=== PATIENT | female | born 1985 | race Caucasian/White ===

== ENCOUNTER 2018-07-14 02:35 | Emergency (ER) | payer SELFPAY ==
[2018-07-14] MEDS ORDERED: KETOROLAC TROMETHAMINE 60 MG/2 ML VIAL IVP STA (02:36)
[2018-07-14] MEDS ORDERED: fentaNYL CITRATE/PF 100 MCG/2 ML INJ. IVP STA (02:38)
[2018-07-14] MEDS ORDERED: ONDANSETRON HCL/PF 4 MG/ 2ML VIAL IVP STA (02:40)
--- NOTE | 2018-07-14 02:45 | ED Physician Documentation ---
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 History exam limited due to patient condition/intoxicated. pt denies current chest pain, dyspnea, syncope/near syncope, headache, dizziness, visual disturbances, v/d, fever/chills, rash, sick contacts, dysuria, trauma. melena or hematochezia, bleeding or easy bruising, change in bowel or bladder function, no recent weight loss/gain, anxiety or depression. ROS Negative unless otherwise specified. - ROS CONST: no problems. denies: fever, sweating, recent illness, weakness, weight loss, chills EYES/ENT: none. denies: problems with vision, sore throat, nasal drainage, nasal congestion CVS/RESP: none. denies: chest pain, shortness of breath, cough GI/: abdominal pain, nausea. denies: problems urinating, vomiting, diarrhea, black stools, other MS/SKIN/LYMPH: none NEURO/PSYCH: other (ROS negative unless otherwise specified). denies: headache, fainting, dizziness, tingling, numbness, difficulty walking, difficulty with speech, anxiety, depression - PAST HX Past History: kidney stones Surgeries/Procedures: other (tubal ligation appendectomy) - SOCIAL HX Smoking History: other (VAPE) Alcohol Use: occasionally Drug Use: none - FAMILY HX Family History: Yes - REVIEWED ASSESSMENTS Nursing Assessment Reviewed: Yes Vitals Reviewed: Yes <Natali Blood - Last Filed: 07/14/18 07:57> - VITAL SIGNS Vital Signs: Vital Signs Temp Pulse Resp BP Pulse Ox 98.6 F 89 24 123/93 98 07/14/18 02:35 07/14/18 02:35 07/14/18 02:35 07/14/18 02:35 07/14/18 02:35 <Olamide Marcum - Last Filed: 07/14/18 10:21> - PAST HX Allergies/Adverse Reactions: Allergies Allergy/AdvReac Type Severity Reaction Status Date / Time Sulfa (Sulfonamide AdvReac Nausea/Vomi Verified 07/14/18 03:10 Antibiotics) ting Home Medications: Ambulatory Orders Medication Instructions Recorded NK 07/14/18 Progress - Results/Orders Results/Orders: 0505-Pt became hypotensive and decreased responsiveness approximately 30 min after ativan 0.5 mg and Fentanyl 50 mcg. pt did not respond to voice but did respond to sternal rub. reversal agents romazicon and narcan were given and pt became awake alert and BP increased to 100 systolic. Will monitor pt 0530 flank pain resolved. pt NAD VSS. 0730 Care and report to olamide BRIGHT. - Progress Progress: Report Submission Date: Jul 14, 2018 4:27:59 AM TELECOMMUNICATOR SUPERVISOR Patient Study Name: JUANA CHURCHILL Date: Jul 14, 2018 3:24:12 AM TELECOMMUNICATOR SUPERVISOR Modality Type: CT\SR Gender: F Description: CT ABD PELVIS W/ CON : 85 Institution: [facility] Physician: NATALI BLOOD CT abdomen and pelvis with and without contrast History: Pelvic pain. Flank pain Technique: Helically acquired images were obtained with and without contrast. Findings: There is no contrast on the study labeled as post contrast. Within the right renal pelvis, there is a 4 mm calyceal stone. There is a very faint 2 mm calyceal stone adjacent to a small scar at the lower pole of the right kidney. At the lower pole of the left kidney, there are 2 adjacent 2 mm stones. There is mild scarring at the upper pole of the left kidney. The right ureter is mildly dilated but no ureteral stones are noted. On these nonenhanced images, which limits somewhat organ evaluation, the liver, spleen, adrenal glands, pancreas and abdominal aorta are unremarkable. The appendix is not re adily visible but there are no secondary findings to suggest acute appendicitis. Small and large bowel loops are normal in caliber. There is a tiny 2 mm calcification associated with the left ovary. Otherwise, the uterus and ovaries are within normal limits for age. Bladder configuration is normal. There is a small amount of free fluid in the pelvis which may be physiologic in this young female. No osseous abnormalities are noted. Impression: Within the right renal pelvis, there is a 4 mm stone. The right ureter is mildly dilated but no intraureteral stones are noted. Small bilateral calyceal stones are present as described and there are small areas of scarring involving both kidneys. Tiny punctate calcification associated with the left ovary. Small amount of free fluid in the pelvis which may be physiologic. The appendix is not identified but there are no secondary findings to suggest acute appendicitis. Please be aware that the postcontrast enhanced images do not demonstrate the presence of contrast. Electronically signed on Jul 14, 2018 4:27:59 AM TELECOMMUNICATOR SUPERVISOR by: Charu Whittington <Natali Blood - Last Filed: 07/14/18 07:57> - Progress Progress: 0720 Discussed with Natali Blood NP. Will take over care. Blood pressure is soft. Will give another liter of NS 0917 Discussed right renal stone. Patient is resting comfortably. Still lethargic. Will work on getting patient more alert and ambulating. 0953 Patient feeling nauseated after eating some food. Will give Zofran 1014 arrives insisting patient be discharged. He has children at home that need to be taken care of. Will get patient up and ambulating, recheck blood pressure. Will discharge if blood pressure remains stable. <Olamide Marcum - Last Filed: 07/14/18 10:21> ED Results Lab/Radiology - Orders Orders: ED Orders Category Date Time Status Place IV Lock 1T Care 07/14/18 02:37 Active CBC/PLATELET/DIFF Stat Lab 07/14/18 02:37 Ordered CMP [CMP] Stat Lab 07/14/18 02:37 Ordered UA [URINALYSIS] Routine Lab 07/14/18 Ordered URINE HCG Stat Lab 07/14/18 Uncollected Ketorolac Tromethamine [Toradol] Med 07/14/18 02:36 Discontinued 30 mg IVP NOW STA Ondansetron HCl/Pf [Zofran 4 mg/2 ml] Med 07/14/18 02:40 Discontinued 4 mg IVP NOW STA fentaNYL CITRATE/PF Med 07/14/18 02:38 Discontinued 50 mcg IVP NOW STA <Natali Blood - Last Filed: 07/14/18 07:57> - Orders Orders: ED Orders Category Date Time Status Activity as ordered QID Care 07/14/18 09:[address] IV Lock 1T Care 07/14/18 02:37 Active Advance Diet as Tolerated Diet 07/14/[address] ABD & PELVIS W & W/O CON Stat Exams 07/14/18 Completed CBC/PLATELET/DIFF Stat Lab 07/14/18 02:37 Received CMP [CMP] Stat Lab 07/14/18 02:37 Received LIPASE Stat Lab 07/14/18 Ordered UA [URINALYSIS] Routine Lab 07/14/18 Ordered URINE HCG Stat Lab 07/14/18 02:38 Ordered 0.9 % Sodium Chloride [Normal Saline] 1,000 ml Med 07/14/18 05:45 Discontinued IV .STK-MED 0.9 % Sodium Chloride [Normal Saline] 1,000 ml Med 07/14/18 02:58 Discontinued IV Q1H 0.9 % Sodium Chloride [Normal Saline] 1,000 ml Med 07/14/18 05:41 Discontinued IV Q1H 0.9 % Sodium Chloride [Normal Saline] 1,000 ml Med 07/14/18 07:20 Discontinued IV Q1H Dicyclomine HCl [Bentyl] Med 07/14/18 04:56 Discontinued 20 mg IM NOW STA Flumazenil [Romazicon] Med 07/14/18 08:11 Discontinued 0.2 mg IV 1T STA Folic Acid [Folvite] Med 07/14/18 05:45 Discontinued 5 mg .ROUTE .STK-MED ONE Ketorolac Tromethamine [Toradol] Med 07/14/18 02:36 Discontinued 30 mg IVP NOW STA LORazepam [Ativan] Med 07/14/18 02:52 Discontinued 0.5 mg IVP NOW ONE Lidocaine 2%Visc 15ml [Xylocaine] Med 07/14/18 04:56 Discontinued 15 mg PO NOW STA Magnesium, Aluminum Hydroxide [Maalox] Med 07/14/18 04:53 Discontinued 30 ml PO NOW STA Multivit Infusn,Adult 1,Vit K [M.v.i. Adult] Med 07/14/18 05:45 Discontinued 10 ml IV .STK-MED ONE Naloxone HCl [Narcan] Med 07/14/18 05:06 Discontinued 0.4 mg .ROUTE .STK-MED ONE Naloxone HCl [Narcan] Med 07/14/18 08:10 Discontinued 0.4 mg IVP NOW STA Ondansetron HCl/Pf [Zofran 4 mg/2 ml] Med 07/14/18 02:40 Discontinued 4 mg IVP NOW STA Potassium Chloride [Klor-Con M20] Med 07/14/18 05:20 Discontinued 40 meq PO NOW STA Thiamine HCl Med 07/14/18 05:45 Discontinued 200 mg .ROUTE .STK-MED ONE Thiamine HCl 100 mg Med 07/14/18 05:31 Discontinued Multivit Infusn,Adult 1,Vit K [M.v.i. Adult] 10 ml Folic Acid [Folvite] 5 mg Magnesium Sulfate 1 gm 0.9 % Sodium Chloride [Normal Saline] 1,000 ml IV NOW fentaNYL CITRATE/PF Med 07/14/18 02:38 Discontinued 50 mcg IVP NOW STA <Olamide Marcum - Last Filed: 07/14/18 10:21> General Adult Physical Exam - PHYSICAL EXAM GENERAL APPEARANCE: mild distress EENT: eye inspection normal, ENT inspection normal, pharynx normal, no signs of dehydration, CLEMENCIA, no nystagmus, TM's nml NECK: normal inspection, thyroid normal. No: lymphadenopathy RESPIRATORY: no resp distress, chest non-tender, breath sounds normal. No: wheezes, rales, rhonchi CVS: reg rate & rhythm, heart sounds normal, equal pulses, no murmur, no gallop, PMI nml, no JVD, no friction rub, 24 ABDOMEN: soft, no organomegaly, normal bowel sounds, no abdominal bruit, no distension BACK: CVA tenderness (L). No: ecchymosis SKIN: warm/dry, normal color EXTREMITIES: non-tender, normal range of motion, no evidence of injury, no edema NEURO: oriented X3, motor nml, sensation nml, other (moderate ETOH intox) <Natali Blood - Last Filed: 07/14/18 07:57> Discharge Decision to Admit: NO <Natali Blood - Last Filed: 07/14/18 07:57> Decision to Admit: NO Date of Decison to Admit: 07/14/18 Decision Time: 10:16 <Olamide Marcum - Last Filed: 07/14/18 10:21> Clincal Impression: Intoxication, Renal calculus, right Clincal Impression: (Ruled Out): Flank pain Referrals: Primary Doctor,No [Primary Care Provider] - 2 Days Additional Instructions: 1. Drink plenty of fluids to maintain proper hydration. Avoid alcohol and caffeine 2. Tylenol and/or ibuprofen as needed for pain 3. Follow up with PCP within 3 days 4. Return to ER for new or worsening symptoms Condition: Stable Disposition: 01 HOME, SELF-CARE
[2018-07-14] MEDS ORDERED: LORazepam 2 MG/ML VIAL IVP ONE (02:52)
[2018-07-14] MEDS ORDERED: 0.9 % SODIUM CHLORIDE 1,000 ML IV STA ×2 (02:58→05:41)
--- NOTE | 2018-07-14 04:35 | Diagnostic Imaging Report ---
[facility] [id number] [facility] [address]. 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 Flank pain Technique: Helically acquired images were obtained with and without contrast. Findings: There is no contrast on the study labeled as post contrast. Within the right renal pelvis, there is a 4 mm calyceal stone. There is a very faint 2 mm calyceal stone adjacent to a small scar at the lower pole of the right kidney. At the lower pole of the left kidney, there are 2 adjacent 2 mm stones. There is mild scarring at the upper pole of the left kidney. The right ureter is mildly dilated but no ureteral stones are noted. On these nonenhanced images, which limits somewhat organ evaluation, the liver, spleen, adrenal glands, pancreas and abdominal aorta are unremarkable. The appendix is not readily visible but there are no secondary findings to suggest acute appendicitis. Small and large bowel loops are normal in caliber. There is a tiny 2 mm calcification associated with the left ovary. Otherwise, the uterus and ovaries are within normal limits for age. Bladder configuration is normal. There is a small amount of free fluid in the pelvis which may be physiologic in this young female. No osseous abnormalities are noted. Impression: Within the right renal pelvis, there is a 4 mm stone. The right ureter is mildly dilated but no intraureteral stones are noted. Small bilateral calyceal stones are present as described and there are small areas of scarring involving both kidneys. Tiny punctate calcification associated with the left ovary. Small amount of free fluid in the pelvis which may be physiologic. The appendix is not identified but there are no secondary findings to suggest acute appendicitis. Please be aware that the postcontrast enhanced images do not demonstrate the presence of contrast. Electronically signed on Jul 14, 2018 4:27:59 AM LIVESTOCK BRANDS INSPECTOR by: Charu SHEPPARD
[2018-07-14] MEDS ORDERED: MAGNESIUM, ALUMINUM HYDROXIDE 30 ML UDC PO STA (04:53)
[2018-07-14] MEDS ORDERED: LIDOCAINE HCL 2% VISC. ORAL 300MG/15ML UDC PO STA (04:56)
[2018-07-14] MEDS ORDERED: DICYCLOMINE HCL 10 MG/ML VIAL IM STA (04:56)
[2018-07-14] MEDS ORDERED: NALOXONE HCL 0.4 MG/ML AMP ONE (05:06)
[2018-07-14] MEDS ORDERED: POTASSIUM CHLORIDE 20 MEQ TABLET.ER PO STA (05:20)
[2018-07-14] MEDS ORDERED: [UNRECOGNIZED DRUG - OTHER] IV STA ×5 (05:31)
[2018-07-14] MEDS ORDERED: MULTIVIT INFUSN ADULT K IV STA ×5 (05:31)
[2018-07-14] MEDS ORDERED: FOLIC ACID IV STA ×5 (05:31)
[2018-07-14] MEDS ORDERED: THIAMINE HCL IV STA ×5 (05:31)
[2018-07-14] MEDS ORDERED: FOLIC ACID 5 MG/1 ML ONE (05:45)
[2018-07-14] MEDS ORDERED: MULTIVIT INFUSN,ADULT 1,VIT K 10 ML VIAL IV ONE (05:45)
[2018-07-14] MEDS ORDERED: 0.9 % SODIUM CHLORIDE 1,000 ML IV ONE ×2 (05:45→07:20)
[2018-07-14] MEDS ORDERED: THIAMINE HCL 200 MG/2 ML VIAL ONE (05:45)
[2018-07-14] MEDS ORDERED: NALOXONE HCL 0.4 MG/ML AMP IVP STA (08:10)
[2018-07-14] MEDS ORDERED: FLUMAZENIL 0.1 MG/ML 5ML VIAL IV STA (08:11)
[2018-07-14] MEDS ORDERED: ONDANSETRON HCL/PF 4 MG/ 2ML VIAL IVP ONE (09:53)
[2018-07-14 10:51] VITALS: BP 102/65
[2018-07-15 09:43] LABS: eGFR (Non-African) > 60
[2018-07-15 09:44] LABS: BASOPHILS % 0.6 (0.0-1.5); EOSINOPHILS % 1.1 % (0.0-6.8); MONOCYTES % 5.4 % (0.0-11.0); NEUTROPHILS # 4.5 # k/uL (1.4-7.7)
[2018-07-15 10:00] LABS: APPEARANCE,URINE CLEAR (CLEAR); COLOR,URINE YELLOW (YELLOW); OCCULT BLOOD,URINE TRACE-LYSED (NEGATIVE); PH URINE 5.5 (5.0 - 8.0); UROBILINOGEN URINE 0.2 Eu (0.2-1.0)
== END 2018-07-14 10:30 | disposition home or self-care (01) ==
LOC: ED 02:35
DX: F10.129 Alcohol abuse with intoxication, unspecified (principal); N20.0 Calculus of kidney
CPT/HCPCS: 36415; 74178; 80053; 81002; 83690; 85025; 96365; 96375; 96376; 99284; 99285; A9270; J1885; J2060; J2310; J2405; J3010; J3411; J3475; J3490; J7030; Q9967; 74177; S1016